=== PATIENT | male | born 1960 ===

== ENCOUNTER 2017-12-24 10:40 | Inpatient (IN) | payer OTHER, SELFPAY ==
[2017-12-09 12:03] VITALS: BMI 30.5
[2017-12-24] VITALS (21 sets, daily range): BP systolic 91–130; BP diastolic 52–79; PULSE 62–82; RESP 8–20; TEMP 36.2–37.5; O2SAT 93–100; BMI 30.5
[2017-12-24] MEDS: LACTATED RINGERS 1,000 ML 42 ML IV ×2 (11:40→15:25)
--- NOTE | 2017-12-24 12:34 | PM.PREOP ---
Pre-operative Note Interval Note Pre-op Check: History & Physical Reviewed by Physician and Exam Performed
--- NOTE | 2017-12-24 12:40 | P.OP_ITS ---
Operative Date/Time/Diagnoses - Date of procedure: 12/24/17 Time of procedure: 15:47 Pre-op diagnosis: Lumbar stenosis with radiculopathy Lumbar spondylolisthesis Post-op diagnosis: same Procedure & Clinicians Procedure: L4-5 anterior fusion with cage L4-5 posterior fusion with screws Iliac crest bone graft Same procedure as scheduled: No (We did not do the laminectomy as we had such good reduction and indirect decompression of the foramen.) Indications: [age] year old male with intractable pain from stenosis. They had failed conservative management and requested operative intervention. Risks and benefits of surgery were discussed and appropriate consents were obtained. Surgeon: Rubén Camejo Adjunct Philosophy Faculty: Ina Alcantara Anesthesia Type: General Operative Notes Findings: none Closure Type: primary Specimen(s): none sent Implants & Drains: NuVasive XLIF Cage and Reline MAS screws Applied: catheter Estimated Blood Loss (mL): 20 Procedure in detail: Patient was brought to the operating room and intubated on the table. Time-out was performed. They were then rolled over to the lateral decubitus position with the [id number]. The table was bent and they were taped down in the correct position. X-rays were taken to confirm a true AP and lateral. Preoperative antibiotics were given. The left flank was prepped and draped in standard sterile fashion. Using fluoroscopy, a 3 cm incision was made above the iliac crest. We bluntly dissected down with Metzenbaum scissors and split the 3 abdominal muscle layers. We dissected out the retroperitoneal space and using finger guidance, brought our 1st dilator down to the psoas muscle. Using neuromonitoring and fluoroscopy, we placed it through the psoas onto the L4-5 disc space in an anterior position and gradually pulled the dilator posteriorly along the disc space. We placed our guidewire and measured our depth for the retractor. We then dilated with the next 2 dilators and then placed our retractor over the dilators. Position was confirmed with fluoroscopy and the retractor was locked down to the bar. We opened up the retractor and checked with neuro monitoring. We then placed the jeane and again checked with neuro monitoring. The retractor was opened further and the ALL retractor was placed. An annulotomy was performed. We then performed a complete diskectomy with ring curette, pituitary, box osteotome. A Wright was advanced across the disc space under fluoroscopy to release the lateral annulus on the opposite side. We then used sequentially larger trials and confirmed under fluoroscopy. An 8mm x 55mm lordotic XLIF cage was packed with Osteocell bone graft and impacted into the L4-5 disc space with fluoroscopy for the anterior fusion at this level. There was excellent height and listhesis correction. The wound was irrigated. The retractor was closed down. The jeane was removed. We carefully removed the retractor with direct visualization to make sure there was no neurovascular or abdominal injury. Final x-rays were taken. The muscle fascia was closed, superficial tissue was closed. The skin was closed. We had such a significant reduction of his listhesis and high correction that we had tremendous indirect decompression of the neural foramen, which was where he was having his stenosis. I felt with this, we did not need to do an actual laminectomy and could then just percutaneously do the posterior aspect. Staying in the lateral position and using fluoroscopy for localization, a 4 cm incision was made to the both sides of the midline and we split down to the fascia and through the fascia. We then percutaneously placed our Jamshidi needles down the bilateral pedicles of L4 and L5 with neuro monitoring and fluoro. We then changed to guidewires. We dilated over the left L5 guidewire and used our facet tube. We used Bovie to expose the facet and a bur was used to decorticate the facet joint itself. A small stab incision was made over the PSIS and a Jamshidi needle was placed into the iliac crest and several mL of bone marrow was aspirated. This was mixed with our locally harvested bone graft as well as the remaining Osteocell and placed into and around the facet for the posterolateral fusion at L4-5. We then tapped over the guidewires and placed our screws with monitoring and fluoroscopy. We placed our rods and locked them down. The wounds were copiously irrigated. The deep fascia was closed. Vancomycin powder was placed in the wounds. The superficial and skin were closed. Sterile dressing was placed. The patient was then rolled over, extubated, brought to the recovery room with no complications. Complications: none Condition: stable Disposition: PACU Plan for aftercare: Inpatient, up with physical therapy
[2017-12-24] MEDS: CEFAZOLIN 2 GM/100 ML FROZ.PIGGY IV ×2 (13:34→20:53)
--- NOTE | 2017-12-24 14:12 | SUR.OPER ---
Right lateral on padded OR table. Head on pillow, gel axillary roll, pillow to support left arm. Legs flexed, pillows between legs, gel pad under down leg and ankle. Multiple passes of 3 inch cloth tape across shoulder, hip, upper and lower legs to secure patient on OR table.
[2017-12-24] MEDS: THROMBIN (BOVINE) 5,000 UNIT VIAL 5000 UNIT TOP (14:19)
[2017-12-24] MEDS: VANCOMYCIN 1,000 MG VIAL 1000 MG TOP (14:19)
[2017-12-24] MEDS: SODIUM CHLORIDE 0.9% 1,000 ML, GENTAMICIN 80 MG IRR (14:20)
[2017-12-24] MEDS: ACETAMINOPHEN IV 1,000 MG/100 ML VIAL 400 MG IV (15:40)
--- NOTE | 2017-12-24 15:42 | DI.RAD.S_ITS ---
PROCEDURE: XR LUMBAR SPINE 2-3V INDICATIONS: 57-year-old male undergoing L4-L5 surgery. TECHNIQUE: 2 intraoperative views of the lumbar spine were acquired. COMPARISON: [facility] TALIA [place], SPINE LUMB MIN 4VW, 12/11/2016, 8:17. [facility] T[facility] [place], SPINE LUMB MIN 4VW, 11/16/2014, 16:16. FINDINGS: Bones: Grade 1 L4-L5 spondylolisthesis has significantly decreased, status post discectomy with interbody fusion and bilateral posterior fixation. Surgical hardware appears intact and in expected positions. Soft tissues: Overlying bowel gas pattern is normal. No suspicious soft tissue calcifications. IMPRESSION: Status post L4-L5 discectomy with interbody fusion and bilateral posterior fixation, with significantly decreased L4-L5 spondylolisthesis. Dictated by: Eric Bryant M.D. on 12/24/2017 at 16:01 Approved by: Eric Bryant M.D. on 12/24/2017 at 16:02
[2017-12-24] MEDS: fentaNYL 100 MCG/2 ML INJ IV ×4 (16:35→17:23)
[2017-12-24] MEDS: HYDROMORPHONE 2 MG INJ 0.5 MG IV ×4 (16:40→17:12)
[2017-12-24] MEDS: hydrOXYzine pamoate 25 MG CAPSULE 50 MG PO (17:16)
--- NOTE | 2017-12-24 18:01 | SUR.PHASEI ---
REPORT CALLED TO [facility] SHELL ON ACUTE CARE FLOOR AT 1740. PT IN STABLE CONDITION, VSS. IV SITE CLEAR. PT SLEEPING OFF AND ON AND EASILY AROUSABLE TO VOICE WHEN SPOKEN TO. DRSG TO SURGICAL SITES, C/D/I. PT TOLERATING ORAL INTAKE WITHOUT ANY DIFFICULTLY. PT DENIES ANY NAUSEA. CATHETER SECURE AND DRAINING CLEAR YELLOW URINE. PT HAS EQUAL STRENGTH IN ALL FOUR EXTREMITIES AND +SENSTATION. PT TRANSFERED TO ACUTE CARE FLOOR. PT TALKING TO RN DURING TRANSPORT. PT FAMILY IN ROOM UPON ARRIVAL. BEDSIDE REPORT GIVEN TO LUNA SHE[facility] AND TRANSFERED CARE OF PT TO [facility] SHELL AT 1755.
[2017-12-24] MEDS: HYDROCODONE/ACET 5/325 TABLET 2 TAB PO (18:34)
[2017-12-24] MEDS: LACTATED RINGERS 1,000 ML 125 ML IV (18:35)
[2017-12-24] MEDS: diphenhydrAMINE 25 MG TABLET PO (19:31)
[2017-12-24] MEDS: DOCUSATE 100 MG CAPSULE PO (20:52)
[2017-12-24] MEDS: CELECOXIB 200 MG CAPSULE PO (20:52)
[2017-12-24] MEDS: GABAPENTIN 600 MG TABLET PO (20:52)
[2017-12-24] MEDS: SENNOSIDES 8.6 MG TABLET 17.2 MG PO (20:52)
[2017-12-24] MEDS: HYDROCODONE/ACET 5/325 TABLET 1 TAB PO (20:54)
[2017-12-25] MEDS: HYDROCODONE/ACET 5/325 TABLET 2 TAB PO ×2 (01:25→05:32)
[2017-12-25 05:10] VITALS: BP 103/60; PULSE 60; RESP 16; TEMP 37.3; O2SAT 96
[2017-12-25] MEDS: CEFAZOLIN 2 GM/100 ML FROZ.PIGGY IV (05:33)
[2017-12-25 06:10] LABS: Hematocrit 41.8 % (41-53); Hemoglobin 14.3 g/dL (13.5-17.5)
[2017-12-25 06:11] LABS: Blood Urea Nitrogen 17 mg/dL (9-20); Calcium 8.4 mg/dL (8.4-10.2); Carbon Dioxide 25 mmol/L (22-32); Chloride 104 mmol/L (98-107); Estimated Glomerular Filt Rate > 60.0 mL/min (>60); Glucose 119 mg/dL (70-100); HEMOLYSIS < 15 (0-50); Potassium 3.7 mmol/L (3.4-5.1); Sodium 140 mmol/L (137-145)
[2017-12-25 07:00] VITALS: BP 130/71; PULSE 65; RESP 16; TEMP 37.4
--- NOTE | 2017-12-25 08:03 | PM.PNPO.1 ---
Subjective Date Patient Seen: 12/25/17 Time Patient Seen: 08:03 Interval history: Rough night. Large amount of pain across the back as well as the left thigh Exam Vital Signs (past 8 hours): - 12/25/17 05:10 Temperature 99.1 F Pulse Rate 60 Respiratory Rate 16 Blood Pressure 103/60 Pulse Oximetry 96 Oxygen Delivery Method Room Air Const Orientation: alert and oriented x3 Back/Spine/Pelvis Other: 5/5 motor both lower extremities except for 4/5 left hip flexor. Dressing CDI Objective Labs Result Diagrams: 12/25/17 05:30 12/25/17 05:30 Labs: Laboratory Results - last 24 hr 12/25/17 12/25/17 05:30 05:30 Hgb 14.3 Hct 41.8 Sodium 140 Potassium 3.7 Chloride 104 Carbon Dioxide 25 BUN 17 Creatinine 1.00 Estimated GFR > 60.0 BUN/Creatinine Ratio 17.0 Glucose 119 H Calcium 8.4 Assessment & Plan Post-op Postoperative Procedures Operation Date: 12/24/17 13:00 Actual Procedures Side Surgeon p L4-5 Laminectomy Ant/Post(XLIF)Instru Fusion & Bone Graft Rubén Camejo MD normal postoperative course. I explained that the left hip weakness and burning is from the lateral muscle-splitting approach through the psoas muscle for the XLIF part of his surgery. This will improve. He requests changing to oxycodone. Start mobilization today with physical therapy. Anticipate discharge tomorrow or Saturday Time Spent With Patient less than 15 minutes Quality VTE Deep Vein Thrombosis/Pulmonary Embolism Present on Admission: No
[2017-12-25] MEDS: CELECOXIB 200 MG CAPSULE PO (08:50)
[2017-12-25] MEDS: GABAPENTIN 600 MG TABLET PO (08:50)
[2017-12-25] MEDS: OXYCODONE IR 10 MG TABLET PO ×3 (08:50→17:11)
[2017-12-25] MEDS: DOCUSATE 100 MG CAPSULE PO (08:53)
[2017-12-25 12:00] VITALS: BP 134/72; PULSE 60; RESP 16; TEMP 36.8; O2SAT 96
--- NOTE | 2017-12-25 12:05 | PT.IIE ---
Current Diagnoses Spondylolisthesis, lumbar region (12/24/17) Spinal stenosis, lumbar region with neurogenic claudication (12/24/17) Surgery Performed Operation Date: 12/24/17 13:00 Actual Procedures p L4-5 Laminectomy Ant/Post(XLIF)Instru Fusion & Bone Graft - Rubén Camejo MD Surgical History (Last Updated 12/09/17 @ 12:13 by Abigail Alas RN) History of total right hip arthroplasty (Acute) Status post arthroscopy of hip (Acute) Medical History (Last Updated 12/09/17 @ 12:13 by Abigail Alas RN) HTN (hypertension) (Acute) Hyperlipidemia (Acute) Normal colonoscopy (Acute) Numbness and tingling (Acute) Physical Therapy Inpatient Evaluation/Re-Eval M1 PT/OT-IP Prior Functional Status Start: 12/25/17 11:54 Freq: NEEDED Status: Active Protocol: Document 12/25/17 11:54 AB (Rec: 12/25/17 12:05 AB [email or web address]) Medical Review Prior Functional Status Medical History Reviewed Yes Mobility and Gait pt stated that he is independent with all mobilities and ambulation without AD Social History Household Members spouse Living Arrangements House Number of Floors (Floors) One Floor Number of Stairs To Enter/Railing? 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 M2 PT-IP Current Condition Start: 12/25/17 11:54 Freq: NEEDED Status: Active Protocol: Document 12/25/17 11:54 AB (Rec: 12/25/17 12:05 AB [email or web address]) Physical Therapy Current Condition Current Condition Evaluation Date 12/25/17 Treatment Diagnosis s/p L4-5 fusion Onset Date 12/24/17 Precautions Lumbar Precautions Log Roll No Twisting Limit Bending Lifting Restriction of 10 lbs Gait Belt above Incisional Area M3 PT-IP Subjective Start: 12/25/17 11:54 Freq: NEEDED Status: Active Protocol: Document 12/25/17 11:54 AB (Rec: 12/25/17 12:05 AB [email or web address]) Subjective Physical Therapy Visit Type Type Initial Evaluation Visit Start Time 10:05 Visit Stop Time 10:55 Total Visit Minutes 50 Number of SERVICE PARTS COORDINATOR Visits 0 Physical Therapy Visit Comments Patient Comments pt agreeable to do therapy Therapy Pain Assessment Pain When Pain Assessed At Rest Pain Present Pain Present Pain Reported Location Back Intensity 6 Scale Used Numeric (1 - 10) Pain Management Techniques Apply Cold Re-positioning Timing of Activity with Medications M4 PT-IP Mobility and Gait Start: 12/25/17 11:54 Freq: NEEDED Status: Active Protocol: Document 12/25/17 11:54 AB (Rec: 12/25/17 12:05 AB [email or web address]) PT-Bed Mobility Assessment Rolling Type of Rolling Log Rolling Level of Assist Standby Assistance Supine to Sit Supine to Sit Standby Assistance Scooting Scooting to Edge of Bed Standby Assistance PT-Transfer Assessment Sit to and From Stand Sit to and from Stand Contact Guard Assistance Equipment Transfer Assistive Device Gait Belt Front Wheeled Walker Transfers Transfer Destination Chair Transfer Technique pt ambulated towards the chair Gait Assessment Gait Gait Assistance Required: Contact Guard Assist Distance (Feet) (feet) 50 Able to Maintain Weight Bearing Status Yes During Gait Assistive Devices Assistive Device Gait Belt Front Wheeled Walker Orthotic/Prosthetic Devices or Brace: No Gait Deviations General Gait Pattern Antalgic Decreased Stride Length Decreased Feet Clearance Factors Limiting Gait Function Factors Limiting Gait Function Decreased Activity Tolerance Decreased Strength Pain Poor Balance PT-Balance Assessment Sitting Balance and Reactions Static Sitting Balance Ability Good Dynamic Sitting Balance Ability Good Standing Balance and Reactions Static Standing Balance Ability Fair Dynamic Standing Balance Ability Fair M5 PT-IP Objective Assessments Start: 12/25/17 11:54 Freq: NEEDED Status: Active Protocol: Document 12/25/17 11:54 AB (Rec: 12/25/17 12:05 AB [email or web address]) Orientation Orientation/Cognition Level of Alertness Alert Orientation Name Age Birthday Month Date Year Day of Week Place Situation Strength Lower Extremity Strength Assessment Left Impaired Hip 3+/5 Knee 4-/5 Ankle 5/5 M6 PT-IP Treatment Start: 12/25/17 11:54 Freq: NEEDED Status: Active Protocol: Document 12/25/17 11:54 AB (Rec: 12/25/17 12:05 AB [email or web address]) Physical Therapy Treatment Education Education Provided Precautions Weight Bearing Status Post-Op Packet Safety M7 PT-IP Assessment and Plan Start: 12/25/17 11:54 Freq: NEEDED Status: Active Protocol: Document 12/25/17 11:54 AB (Rec: 12/25/17 12:05 AB [email or web address]) PT Summary Assessment and Plan Potential Rehabilitation Potential Good Status of Condition at Evaluation Evolving Summary Impairments Pain ROM Strength Balance Bed Mobility Transfers Gait Activity Tolerance Assessment Summary pt requiring CGA with mobility with decrease activity tolerance. pt will have spouse to assist him at home. pt stated that he will borrow a FWW from the [employer]. stair climbing will also be completed prior to d/c. Goals Bed Mobility Goal Standby Assistance Transfer Goal Standby Assistance Gait Goal Standby Assistance Gait Distance 150 Days to Meet Goals 3 Frequency of Treatment Frequency Of Treatment Twice a Day Treatment Plan Physical Therapy Treatment Plan Bed Mobility Training Transfer Training Gait Training Therapeutic Exercise Balance Retraining Post Op Education Discharge Planning Hot or Cold Pack Neuromuscular Re-ed Coordination Retraining Manual Therapy Other Recommendations and Next Treatment stair climbing, bed mobility Focus log roll, ambulation Recommendations To Nursing Amount of Assist Needed 1 Person Assist Discharge Recommendations PT Discharge Recommendations Home with Assistance Equipment Needed for Home Before FWW: pt will borrow from [employer]
[2017-12-25] MEDS: LISINOPRIL 10 MG TABLET PO (13:03)
[2017-12-25] MEDS: hydroCHLOROthiazide 12.5 MG CAPSULE PO (13:03)
--- NOTE | 2017-12-25 15:06 | CM.DANOTE ---
DCP Assessment: Pt is a 57 yo male, resident of [place]. Pt admitted for a scheduled spinal surgery w/Dr Yepez. Pt's PCP is Hazel Hansen; Insurance is [employer] Met w/pt briefly. Pt feels he is doing much better since a narcotic change this morning. 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 Spouse has taken time off to care for pt in his recovery at home. In addition, pt's dtr Cici, is an RN that works at [employer] [facility] [employer] and she has made herself available to assist pt prn. No expected barriers to safe DC home. PT has cleared pt for : Home w/spouse. THERESA Love
--- NOTE | 2017-12-25 15:17 | PM.DS.1 ---
History of Present Illness Date Patient Seen: 12/25/17 Time Patient Seen: 15:30 Chief complaint: [id number] L4-5 Narrative: Patient is a 57-year-old male with history of low back pain. He failed conservative treatment with PT, anti-inflammatories and gabapentin and elected to proceed with a L4-5 laminectomy and XLIF with Dr. Camejo at [facility] Discharge Providers Date of admission: 12/24/17 10:40 Primary care physician: Hazel Hansen DO Consults: 12/24/17 18:01 Consult to Occupational Therapy Evaluate & Treat Comment: Physician Instructions: Evaluate and treat Consult to Physical Therapy Evaluate & Treat Comment: Physician Instructions: Evaluate and Treat Discharge provider: Katya Manrique PA-C Summary Discharge Diagnosis: 1. Lumbar stenosis with radiculopathy 2. Lumbar spondylolisthesis Hospital Course: Patient was admitted and taken to the operating room where he had at L4-5 laminectomy and XLIF with Dr. Camejo. He recovered well was transferred to the floor for the further care. The morning of postop day 1 patient was having issues with pain control. His pain medication was changed from hydrocodone to oxycodone that morning. By the afternoon, and patient's pain was under control he was ambulating well and is ready to be discharged home. His Berger will be pulled this afternoon if he is able to be urinating without difficulty he will be discharged home. Status at Discharge Cognitive/behavioral status at discharge: Alert and oriented times Functional status at discharge: uses cane/walker Overall status at discharge: patient is progressing back to baseline Time Spent with Patient Less than 30 minutes Exam Vital Signs (past 8 hours): - 12/25/17 12:00 Temperature 98.3 F Pulse Rate 60 Respiratory Rate 16 Blood Pressure 134/72 H Pulse Oximetry 96 Oxygen Delivery Method Room Air Oxygen Flow Rate 95 Narrative Exam Narrative: Patient in bed. Appears comfortable. He just finished walking down the adler with physical therapy. Alert and orient x3. Back dressings clean dry and intact. 5/5 bilateral lower extremity strength except 4/5 left hip flexor. Some discomfort with flexion of the left hip. Neurovascular status intact. Objective Labs Result Diagrams: 12/25/17 05:30 12/25/17 05:30 Labs: Laboratory Results - last 24 hr 12/25/17 12/25/17 05:30 05:30 Hgb 14.3 Hct 41.8 Sodium 140 Potassium 3.7 Chloride 104 Carbon Dioxide 25 BUN 17 Creatinine 1.00 Estimated GFR > 60.0 BUN/Creatinine Ratio 17.0 Glucose 119 H Calcium 8.4 Discharge Plan Discharge Plan Patient Disposition: Home, Self-Care Discharge Med Rec/Prescriptions Prescriptions: New celecoxib [Celebrex] 200 mg Capsule 200 mg PO BID Qty: 60 RF: 0 oxycodone 10 mg Tablet 10 mg PO Q3-4H PRN (Reason: Pain, Severe (7-10)) Qty: 60 RF: 0 hydrochlorothiazide 12.5 mg Capsule 12.5 mg PO DAILY Qty: 0 RF: 0 Continue gabapentin 100 mg Capsule 600 mg PO BID RF: 0 lisinopril-hydrochlorothiazide 10-12.5 mg Tablet 1 tab PO DAILY RF: 0 Discontinued hydrocodone-acetaminophen [[place]] 5-325 mg Tablet 1 tab PO DAILY RF: 0 meloxicam 15 mg Tablet 15 mg PO DAILY RF: 0 tramadol 50 mg Tablet 50 mg PO BID RF: 0 Follow up/Referrals: Rubén Camejo MD [Physician] - (Follow-up on 01/06/2018 at 1:30 p.m. at [facility]. Any issues or concerns contact the office.) Provider Discharge Instructions Diet: Diet as Tolerated Activity: Activity as tolerated. No lifting, bending or twisting. Cold/Heat Therapy: Apply ice as needed for swelling and inflammation. Wound Care Report to your healthcare provider any signs of infection, such as:: chills, fever, increased pain and unusual drainage Dressing: Keep dressings intact. May shower. Visit Report/Discharge Packet Instructions: Spinal Fusion Discharge Data Primary Care Provider: Hazel Hansen Attending Provider: Rubén Camejo Admit Date/Time: 12/24/17 10:40 Quality VTE Deep Vein Thrombosis/Pulmonary Embolism Present on Admission: No
--- NOTE | 2017-12-25 15:19 | PT.IPTN ---
Current Diagnoses Spondylolisthesis, lumbar region (12/24/17) Spinal stenosis, lumbar region with neurogenic claudication (12/24/17) Surgery Performed Operation Date: 12/24/17 13:00 Actual Procedures p L4-5 Laminectomy Ant/Post(XLIF)Instru Fusion & Bone Graft - Rubén Camejo MD Physical Therapy Treatment Note M2 PT-IP Current Condition Start: 12/25/17 11:54 Freq: NEEDED Status: Active Protocol: Document 12/25/17 11:54 AB (Rec: 12/25/17 12:05 AB [email or web address]) Physical Therapy Current Condition Current Condition Evaluation Date 12/25/17 Treatment Diagnosis s/p L4-5 fusion Onset Date 12/24/17 Precautions Lumbar Precautions Log Roll No Twisting Limit Bending Lifting Restriction of 10 lbs Gait Belt above Incisional Area M3 PT-IP Subjective Start: 12/25/17 11:54 Freq: NEEDED Status: Active Protocol: Document 12/25/17 15:09 GGD (Rec: 12/25/17 15:19 GGD [id number]) Subjective Physical Therapy Visit Type Type Treatment Note Visit Start Time 14:40 Visit Stop Time 15:05 Number of RESIDENTIAL TREATMENT COUNSELOR Visits 1 Physical Therapy Visit Comments Patient Comments Pt states he feels much better . Therapy Pain Assessment Pain When Pain Assessed At Rest Pain Present Pain Present Pain Reported Location Back Intensity 3 Scale Used Numeric (1 - 10) Pain Management Techniques Timing of Activity with Medications M4 PT-IP Mobility and Gait Start: 12/25/17 11:54 Freq: NEEDED Status: Active Protocol: Document 12/25/17 15:09 GGD (Rec: 12/25/17 15:19 GGD [id number]) PT-Bed Mobility Assessment Rolling Type of Rolling Log Rolling Level of Assist Independent Supine to Sit Supine to Sit Standby Assistance Sit to Supine Sit to Supine Standby Assistance Scooting Scooting to Edge of Bed Independent PT-Transfer Assessment Sit to and From Stand Sit to and from Stand Standby Assistance Use of Upper Extremities Equipment Transfer Assistive Device Gait Belt Front Wheeled Walker Gait Assessment Gait Gait Assistance Required: Contact Guard Assist Distance (Feet) (feet) 600 Assistive Devices Assistive Device Gait Belt Front Wheeled Walker Orthotic/Prosthetic Devices or Brace: No Gait Deviations General Gait Pattern Antalgic Factors Limiting Gait Function Factors Limiting Gait Function Decreased Activity Tolerance Decreased Strength Pain Stair Climbing Assessment Evaluation Level of Assist On Stairs Contact Guard Assistance Devices Stair Climbing Assistive Devices Right Railing Technique/Endurance Stair Climbing Direction Ascend and Descend Stair Climbing Technique Step to Step Number of Steps Climbed 3 Query Text: Stair Climbing Set # Repetitions (reps) 1 M5 PT-IP Objective Assessments Start: 12/25/17 11:54 Freq: NEEDED Status: Active Protocol: Document 12/25/17 11:54 AB (Rec: 12/25/17 12:05 AB [email or web address]) Orientation Orientation/Cognition Level of Alertness Alert Orientation Name Age Birthday Month Date Year Day of Week Place Situation Strength Lower Extremity Strength Assessment Left Impaired Hip 3+/5 Knee 4-/5 Ankle 5/5 M6 PT-IP Treatment Start: 12/25/17 11:54 Freq: NEEDED Status: Active Protocol: Document 12/25/17 15:09 GGD (Rec: 12/25/17 15:19 GGD [id number]) Physical Therapy Treatment Education Education Provided Precautions M7 PT-IP Assessment and Plan Start: 12/25/17 11:54 Freq: NEEDED Status: Active Protocol: Document 12/25/17 15:09 GGD (Rec: 12/25/17 15:19 GGD [id number]) PT Summary Assessment and Plan Summary Assessment Summary Pt improving with mobility. He had good pain control with activity. He was SBA for bed mobility and good log roll techinque. He had no unsteadiness or LOB. Frequency of Treatment Frequency Of Treatment Twice a Day Treatment Plan Other Recommendations and Next Treatment stair climbing, bed mobility Focus log roll, ambulation Recommendations To Nursing Amount of Assist Needed 1 Person Assist Discharge Recommendations PT Discharge Recommendations Home with Assistance Equipment Needed for Home Before FWW: pt will borrow from [employer]. s [employer]
--- NOTE | 2017-12-25 15:40 | PC.NURSE ---
Pt awake, denies discomfort at this time. Fole cat /C'd at this time. 150cc clear urine in bag.
--- NOTE | 2017-12-25 15:41 | P.DS_ITS ---
History of Present Illness Date Patient Seen: 12/25/17 Time Patient Seen: 15:30 Chief complaint: [id number] L4-5 Narrative: Patient is a 57-year-old male with history of low back pain. He failed conservative treatment with PT, anti-inflammatories and gabapentin and elected to proceed with a L4-5 laminectomy and XLIF with Dr. Camejo at [facility] Discharge Providers Date of admission: 12/24/17 10:40 Primary care physician: Hazel Hansen DO Consults: 12/24/17 18:01 Consult to Occupational Therapy Evaluate & Treat Comment: Physician Instructions: Evaluate and treat Consult to Physical Therapy Evaluate & Treat Comment: Physician Instructions: Evaluate and Treat Discharge provider: Katya Manrique PA-C Summary Discharge Diagnosis: 1. Lumbar stenosis with radiculopathy 2. Lumbar spondylolisthesis Hospital Course: Patient was admitted and taken to the operating room where he had at L4-5 laminectomy and XLIF with Dr. Camejo. He recovered well was transferred to the floor for the further care. The morning of postop day 1 patient was having issues with pain control. His pain medication was changed from hydrocodone to oxycodone that morning. By the afternoon, and patient's pain was under control he was ambulating well and is ready to be discharged home. His Berger will be pulled this afternoon if he is able to be urinating without difficulty he will be discharged home. Status at Discharge Cognitive/behavioral status at discharge: Alert and oriented times Functional status at discharge: uses cane/walker Overall status at discharge: patient is progressing back to baseline Time Spent with Patient Less than 30 minutes Exam Vital Signs (past 8 hours): - 12/25/17 12:00 Temperature 98.3 F Pulse Rate 60 Respiratory Rate 16 Blood Pressure 134/72 H Pulse Oximetry 96 Oxygen Delivery Method Room Air Oxygen Flow Rate 95 Narrative Exam Narrative: Patient in bed. Appears comfortable. He just finished walking down the adler with physical therapy. Alert and orient x3. Back dressings clean dry and intact. 5/5 bilateral lower extremity strength except 4/5 left hip flexor. Some discomfort with flexion of the left hip. Neurovascular status intact. Objective Labs Result Diagrams: 12/25/17 05:30 12/25/17 05:30 Labs: Laboratory Results - last 24 hr 12/25/17 12/25/17 05:30 05:30 Hgb 14.3 Hct 41.8 Sodium 140 Potassium 3.7 Chloride 104 Carbon Dioxide 25 BUN 17 Creatinine 1.00 Estimated GFR > 60.0 BUN/Creatinine Ratio 17.0 Glucose 119 H Calcium 8.4 Discharge Plan Discharge Plan Patient Disposition: Home, Self-Care Discharge Med Rec/Prescriptions Prescriptions: New celecoxib [Celebrex] 200 mg Capsule 200 mg PO BID Qty: 60 RF: 0 oxycodone 10 mg Tablet 10 mg PO Q3-4H PRN (Reason: Pain, Severe (7-10)) Qty: 60 RF: 0 hydrochlorothiazide 12.5 mg Capsule 12.5 mg PO DAILY Qty: 0 RF: 0 Continue gabapentin 100 mg Capsule 600 mg PO BID RF: 0 lisinopril-hydrochlorothiazide 10-12.5 mg Tablet 1 tab PO DAILY RF: 0 Discontinued hydrocodone-acetaminophen [[place]] 5-325 mg Tablet 1 tab PO DAILY RF: 0 meloxicam 15 mg Tablet 15 mg PO DAILY RF: 0 tramadol 50 mg Tablet 50 mg PO BID RF: 0 Follow up/Referrals: Rubén Camejo MD [Physician] - (Follow-up on 01/06/2018 at 1:30 p.m. at [facility]. Any issues or concerns contact the office.) Provider Discharge Instructions Diet: Diet as Tolerated Activity: Activity as tolerated. No lifting, bending or twisting. Cold/Heat Therapy: Apply ice as needed for swelling and inflammation. Wound Care Report to your healthcare provider any signs of infection, such as:: chills, fever, increased pain and unusual drainage Dressing: Keep dressings intact. May shower. Visit Report/Discharge Packet Instructions: Spinal Fusion Discharge Data Primary Care Provider: Hazel Hansen Attending Provider: Rubén Camejo Admit Date/Time: 12/24/17 10:40 Quality VTE Deep Vein Thrombosis/Pulmonary Embolism Present on Admission: No
--- NOTE | 2017-12-25 15:50 | OT.IP.EVAL ---
Current Diagnoses Spondylolisthesis, lumbar region (12/24/17) Spinal stenosis, lumbar region with neurogenic claudication (12/24/17) Surgery Performed Operation Date: 12/24/17 13:00 Actual Procedures p L4-5 Laminectomy Ant/Post(XLIF)Instru Fusion & Bone Graft - Rubén Camejo MD Past Medical History (Last Updated 12/09/17 @ 12:13 by Abigail Alas, RN) HTN (hypertension) (Acute) Hyperlipidemia (Acute) Normal colonoscopy (Acute) Numbness and tingling (Acute) Surgical History (Last Updated 12/09/17 @ 12:13 by Abigail Alas RN) History of total right hip arthroplasty (Acute) Status post arthroscopy of hip (Acute) Occupational Therapy Inpatient Evaluation/Re-Eval M1 PT/OT-IP Prior Functional Status Start: 12/25/17 11:54 Freq: NEEDED Status: Active Protocol: Document 12/25/17 15:50 PJM (Rec: 12/25/17 16:23 PJM [id number]) Medical Review Prior Functional Status Medical History Reviewed Yes Diet/Fluid Consistency Regular Communication WNL Mobility and Gait pt stated that he is independent with all mobilities and ambulation without AD Activities of Daily Living and IADL's Pt indep with all self care and IADLS, but significantly limited by back and radiating BLE pain. 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 Social History Household Members spouse Living Arrangements House Number of Floors (Floors) One Floor Number of Stairs To Enter/Railing? 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 Additional Social History Comment Provided long bath sponge today; pt has other equipt from [facility] 2 yrs ago M2 OT-IP Current Condition Start: 12/25/17 16:12 Freq: Status: Active Protocol: Document 12/25/17 15:50 PJM (Rec: 12/25/17 16:23 PJM [id number]) Occupational Therapy Current Condition Current Condition Evaluation Date 12/25/17 Treatment Diagnosis decreased self care s/p l4-5 lami/fusion Post Operative Precautions Lumbar Precautions Log Roll No Twisting Limit Bending Lifting Restriction of 10 lbs Gait Belt above Incisional Area M3 OT- IP Subjective and Pain Start: 12/25/17 16:12 Freq: Status: Active Protocol: Document 12/25/17 15:50 PJM (Rec: 12/25/17 16:23 PJM [id number]) OT- Subjective Occupational Therapy Visit Type Type Initial Evaluation Visit Start Time 15:25 Visit Stop Time 15:50 Total Visit Minutes 25 Occupational Therapy Visit Comments Patient Comments I hope I can go home today. Patient/Caregiver Goals to be able to walk without pain and do yard work and gardening OT Pain Assessment Pain When Pain Assessed After Treatment Pain Present Pain Present Pain Reported Location Back Intensity 4 Scale Used Numeric (1 - 10) Description Aching M4 OT- IP ADL's Start: 12/25/17 16:12 Freq: Status: Active Protocol: Document 12/25/17 15:50 PJM (Rec: 12/25/17 16:23 PJM [email or web address]) OT [id number] General Evaluation Self-Feeding Ability Independent OT ADL-Grooming General Evaluation Grooming Ability Independent Comments OT Grooming Comments provided education re: body mechanics when standing at sink OT ADL-Oral Care General Eval Oral Care Ability Independent OT ADL-Dressing General Eval Upper Body Dressing Ability Independent Lower Body Dressing Ability Independent Areas Needing Assistance Pants/Shorts Socks Shoes Assistive Devices Dressing Assistive Devices Long Handled Shoe [employer] 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 Aid Comments OT Dressing Comments pt familiar with adaptive equipt from [facility] surgery; can also assist PRN OT ADL-Toileting General Evaluation Toileting Ability Independent Comments OT Toileting Comments provided education re: body mechanics OT ADL-Bathing General Evaluation Bathing Ability Standby Assistance Devices Bathing Equipment Long Handled Sponge or [place] Shower Chair without Arms Comments OT Bathing Comments provided education re: body mechanics, to assist PRN, provided long sponge M5 OT- IP IADL's Start: 12/25/17 16:12 Freq: Status: Active Protocol: Document 12/25/17 15:50 PJM (Rec: 12/25/17 16:23 PJM [id number]) OT-Instrumental Activities of Daily Living Deficits IADL Deficits Identified Deficits Home Safety Awareness Awareness of Need for Assistance at Home Good Awareness Ability to Problem Solve Emergency Able to Problem Solve Situations Medication Management Medication Management No Deficits Identified Money Management Money Management No Deficits Identified Meal Preparation Meal Preparation Caregiver Provides Assist Food And Beverage Operations Manager Food And Beverage Operations Manager Caregiver Provides Assist Driving Driving Caregiver Provides Assist Driving Comments until pt able M6 OT- IP Functional Cognition Start: 12/25/17 16:12 Freq: Status: Active Protocol: Document 12/25/17 15:50 PJM (Rec: 12/25/17 16:23 PJM [id number]) Cognitive Factors Limiting Selfcare Function Cognitive Ability Level of Alertness Alert Patient Orientation Name Age Birthday Month Date Year Day of Week Place Situation Attention Span Ability Capable of Focused Attention Capable of Sustained Attention Ability to Follow Commands Able to Follow Multi-Step Commands Memory Description No Deficits Noted Safety Awareness No Deficits Noted Problem Solving Ability No deficits Noted Executive Function Ability No Deficits Noted OT- Vision and Hearing OT- Hearing Assessment OT- Hearing Assessment WFL OT- Vision Assessment Visual Acuity WFL M7 OT- IP Mobility and Balance Start: 12/25/17 16:12 Freq: Status: Active Protocol: Document 12/25/17 15:50 PJM (Rec: 12/25/17 16:23 PJM [id number]) OT-Transfer Assessment Comments Mobility Comments Provided education re: optimal chair selection and sitting posture OT- Gait Assessment Comments Gait Ability Comments See P.T. report OT- Balance Assessment Comments Other Balance Tests/Deviations/Treatment See P.T. report : M8 OT- IP Objective Assessments Start: 12/25/17 16:12 Freq: Status: Active Protocol: Document 12/25/17 15:50 PJM (Rec: 12/25/17 16:23 PJM [id number]) OT Gross Range of Motion Upper Extremity Range of Motion Assessment Within Functional Limits OT Strength Upper Extremity Strength Assessment Within Functional Limits OT- Coordination Assessment Comments Coordination Comments WFL BUE OT-Muscle Tone Assessment Muscle Tone WNL Yes OT Sensation Assessment Comments Summary Comments WNL BUE Edema Edema Absent M9 OT- IP Assessment and Plan Start: 12/25/17 16:12 Freq: Status: Active Protocol: Document 12/25/17 15:50 PJM (Rec: 12/25/17 16:23 PJM [id number]) OT Summary Assessment and Plan Potential Rehabilitation Potential Excellent Analytic Complexity at Evaluation Low Summary Assessment Summary Low complexity OT assessment and all education re: lumbar spine precautions, body mechanics and adapted ADLS provided in one visit. Pt verbalizes understanding of all education and is familiar with lower body dressing techniques from previous [facility] . Pt has all necessary equipment at home and supportive will take 4-5 days off work and can take more if needed. Pt plans to d/ c home today if he can urinate . All OT goals achieved for this admission. Discharge Recommendations OT Discharge Recommendations Home with Assistance Home Equipment Needs pt has all necessary equipment , will borrow FWW and shower seat from [facility]
--- NOTE | 2017-12-25 16:12 | PC.NURSE ---
Ortho: MD Camejo here and made aware of pt's pain control issues. switched meds. Pt reports oxycodone is much better for pain relief for him. Worked w/PT. Up and amb in hallways. Spouse here and has been helpful. Pt would like to go home if he can void and if pain stays in control. PA made aware. Next shift aware wall needs to be d/c. Cont w/poc.
[2017-12-25 16:23] VITALS: BP 127/75; PULSE 63; RESP 18; TEMP 37.2; O2SAT 97
--- NOTE | 2017-12-25 17:44 | PC.NURSE ---
Pt HL discontinued intact,new aquacell dsg applied to surgiical back, discharge instructions given w/ apparent understanding. Pt escorted to waiting vehicle in stable post op staus.
== END 2017-12-25 17:35 | disposition home or self-care (01) | DRG 455 ==
PROVIDERS: Admitting Provider Orthopaedic Surgery; PCP Family Medicine; Visit Provider Orthopaedic Surgery
PROC: 0SG00A0 Fusion of Lumbar Vertebral Joint with Interbody Fusion Device, Anterior Approach, Anterior Column, Open Approach (ICD-10-PCS; CPT 22558; principal; 2017-12-24 13:00)
DX: M48.062 Spinal stenosis, lumbar region with neurogenic claudication (principal); M43.16 Spondylolisthesis, lumbar region; I10 Essential (primary) hypertension; Z87.891 Personal history of nicotine dependence
CPT/HCPCS: 36415; 36592; 72100; 76001; 80048; 85014; 85018; 97116; 97161; 97165; 97530; C1776; J0131; J0690; J1170; J2250; J2405; J2704; J2765; J3010